=== PATIENT | female | born 1960 | race Caucasian/White ===

== ENCOUNTER → 2016-10-04 | Outpatient (CLI) | payer BC ==
[~2016-10-04] MED LIST: ACET1TAB84 PO; DIAZ-165 PO; GFNSR600 PO; HYDR-5688 PO; IVIG INFUSION IV; MULT-506 PO; POLYSOL4 OPB; SALI1SPR3 NAE
--- NOTE | 2016-10-04 12:26 | MAMMOGRAPHY REPORT ---
UNILATERAL LEFT DIGITAL DIAGNOSTIC MAMMOGRAM TOMOSYNTHESIS WITH CAD: 10/04/2016 CLINICAL HISTORY: History of left breast cancer status post lumpectomy and radiation therapy, here f or short interval follow-up. The patient reports pain at her surgical bed since her surgery. 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 TECHNIQUE: Breast tomosynthesis in addition to standard 2D mammography was performed. Current study was also evaluated with a Computer Aided Detection (CAD) system. Left CC and MLO 2-D and tomosynth esis images and spot magnification left CC and ML views were obtained. COMPARISON: Comparison is made to exams dated: 03/21/2016 stereotactic biopsy, 03/21/2016 mammogram, ultrasound, 03/14/2016 mammogram, 03/07/2016 mammogram, and 11/20/2014 mammogram - [facility]. BREAST COMPOSITION: The tissue of the left breast is heterogeneously dense, which may obscure small masses. FINDINGS: There are new post surgical changes in the left medial breast from prior lumpectomy, inclu ding architectural distortion and surgical clips at the lumpectomy bed. Spot magnification views of the lumpectomy bed demonstrate punctate calcifications in the region of the lumpectomy bed, which a re best seen on the spot magnification CC view. Review of prior mammograms demonstrates scattered c alcifications within the left breast which have been seen dating back to the 2009 exam. Given that the margins were negative, the calcifications are probably benign, and follow-up is recommended in 6 months to confirm stability. The remainder of the left breast is stable compared to prior exams, without suspicious masses, calci fications, or areas of architectural distortion noted. An asymmetry is seen within the left posteri or breast on the MLO view which has the appearance of normal overlapping fibroglandular tissue on th e tomosynthesis images. Mild diffuse left breast skin thickening is noted, likely a sequela of radi ation therapy. IMPRESSION: ACR-BI-RADS CATEGORY 3: PROBABLY BENIGN Expected post treatment changes in the left breast status post lumpectomy and radiation therapy. Pu nctate calcifications at the lumpectomy bed are probably benign. Recommend bilateral diagnostic tha mograms in 6 months, to reevaluate the left breast postsurgical changes and calcifications and for r outine mammography of the right breast. Also recommend clinical follow-up for left breast pain. The patient has been verbally notified of the results. Approximately 10% of breast cancers are not detected with mammography. A negative mammographic repor t should not delay biopsy if a clinically suggestive mass is present. Megan Johns M.D. ah/:10/04/2016 09:35:30 Card Cutter: Susan TAYLOR(Artur)(Rayna), [facility] letter sent: Personal History 3 BI-RADS Code: ACR-BI-RADS Category 3: Probably Benign
== END | disposition home or self-care (01) ==
LOC: C.MAMM 08:13
PROVIDERS: ATTEND Surgery
DX: Z85.3 Personal history of malignant neoplasm of breast (principal); R92.1 Mammographic calcification found on diagnostic imaging of breast

== ENCOUNTER → 2017-12-11 | Outpatient (CLI) | payer OTHER ==
[~2017-12-11] MED LIST changes: +SALI-3 NAE; -SALI1SPR3 NAE
--- NOTE | 2017-12-11 14:43 | DIAGNOSTIC IMAGING REPORT ---
L HEEL MIN 2 VIEWS CLINICAL HISTORY: PAIN IN L FOOT, LOW BACK PAIN pain COMPARISON: None. DISCUSSION: The bones and joint spaces appear intact. There is no evidence of fracture, dislocation or bony disease. Osteophytic reaction at the Achilles tendon insertion. Subtalar joint is intact. IMPRESSION: No acute process. Moderate ossification Achilles tendon insertion. The above report was generated using voice recognition software. It may contain grammatical, syntax or spelling errors. Electronically signed by: Yahir Woods M.D. 12/11/2017 2:42 PM Dictated Date/Time: 12/11/2017 2:42 PM
--- NOTE | 2017-12-11 14:45 | DIAGNOSTIC IMAGING REPORT ---
L-SPINE MIN 4 VIEWS ROUTINE CLINICAL HISTORY: Low back pain. COMPARISON: Lumbar spine radiographs June 15, 2010 and lumbar spine MRI March 31, 2015. FINDINGS: Alignment of the lumbar spine is anatomic. Vertebral body heights are maintained. There is no fracture or suspicious lesion. Minimal multilevel endplate osteophytosis and mild multilevel facet arthrosis is present. IMPRESSION: 1. No acute lumbar spine fracture or subluxation. 2. Mild multilevel degenerative disc disease and facet arthrosis of the lumbar spine. Electronically signed by: Filiberto Browning M.D. 12/11/2017 2:43 PM Dictated Date/Time: 12/11/2017 2:42 PM
--- NOTE | 2017-12-11 14:46 | DIAGNOSTIC IMAGING REPORT ---
L FOOT MIN 3 VIEWS ROUTINE CLINICAL HISTORY: PAIN IN L FOOT, LOW BACK PAIN pain COMPARISON: None. DISCUSSION: Considerable degenerative change first metatarsophalangeal joint. Mild soft tissue edema at the level of the fifth metatarsophalangeal joint. No evidence for acute bony pathology. Ossification Achilles tendon insertion. IMPRESSION: 1. Significant degenerative change first metatarsophalangeal joint. 2. Soft tissue edema about the fifth toe. 3. Otherwise negative study. The above report was generated using voice recognition software. It may contain grammatical, syntax or spelling errors. Electronically signed by: Yahir Woods M.D. 12/11/2017 2:45 PM Dictated Date/Time: 12/11/2017 2:44 PM
== END | disposition home or self-care (01) ==
LOC: C.RAD 13:54
PROVIDERS: ATTEND Nurse Practitioner
DX: M79.672 Pain in left foot (principal); M54.5 Low back pain

== ENCOUNTER → 2018-04-12 | Outpatient (CLI) | payer OTHER ==
--- NOTE | 2018-04-12 19:37 | DIAGNOSTIC IMAGING REPORT ---
L KNEE 3 VIEWS HISTORY: 58 years-old Female LEFT KNEE PAIN acute left knee pain COMPARISON: None available TECHNIQUE: 3 views of the left knee FINDINGS: Bones appear mildly demineralized. Marginal spurring of the tibial spines. Tricompartmental osteoarthritis, mild within the lateral compartment, mild to moderate within the medial compartment and moderate within the patellofemoral joint. Mild medial soft tissue swelling. No acute fracture, dislocation, opaque foreign body or large joint effusion. IMPRESSION: 1. Tricompartmental osteoarthritis as above without acute fracture or dislocation. 2. Mild medial soft tissue swelling. The above report was generated using voice recognition software. It may contain grammatical, syntax or spelling errors. Electronically signed by: Reji Griffin M.D. 04/12/2018 7:36 PM Dictated Date/Time: 04/12/2018 7:34 PM
--- NOTE | 2018-04-12 19:39 | DIAGNOSTIC IMAGING REPORT ---
PELVIS/BILATERAL HIP 2 VIEWS HISTORY: 58 years-old Female HIP PAIN acute bilateral hip pain COMPARISON: None available TECHNIQUE: AP view the pelvis with 2 views of the bilateral hips for a total of 5 images FINDINGS: Mild degenerative changes of the SI joints and pubic symphysis. Mild osteoarthritis of the bilateral femoral acetabular joints. There is no acute fracture or dislocation identified. Pelvic basin calcifications suggest phleboliths. IMPRESSION: No acute fracture or dislocation. The above report was generated using voice recognition software. It may contain grammatical, syntax or spelling errors. Electronically signed by: Reji Griffin M.D. 04/12/2018 7:38 PM Dictated Date/Time: 04/12/2018 7:36 PM
== END | disposition home or self-care (01) ==
LOC: C.RAD 18:36
PROVIDERS: ATTEND Physician Assistant
DX: M17.12 Unilateral primary osteoarthritis, left knee (principal); M25.561 Pain in right knee; M25.551 Pain in right hip; M25.552 Pain in left hip; Z88.0 Allergy status to penicillin; Z88.1 Allergy status to other antibiotic agents; Z88.5 Allergy status to narcotic agent; Z88.8 Allergy status to other drugs, medicaments and biological substances

== ENCOUNTER → 2018-04-12 | Outpatient (CLI) | payer OTHER ==
--- NOTE | 2018-04-12 19:46 | DIAGNOSTIC IMAGING REPORT ---
R HAND MIN 3 VIEWS ROUTINE HISTORY: 58 years-old Female TRAUMA TO R L FINGER acute post matter greater hand pain, most pronounced within the third digit COMPARISON: None available TECHNIQUE: 3 views of the right hand FINDINGS: Mildly demineralized appearance of the bones. There are at least mild degenerative changes about the interphalangeal and metacarpal phalangeal joints with mild radiocarpal and first carpometacarpal osteoarthritis. There is no definite acute fracture or dislocation identified. No opaque foreign body. Mild soft tissue prominence about the third PIP joint. 2 mm bone fragment is noted along the dorsal surface of the third proximal phalangeal head. IMPRESSION: 1. No acute displaced fracture or dislocation. 2. Mild soft tissue prominence about the third PIP joint with adjacent 2 mm bone fragment suggesting a fragmented osteophyte. Acute fracture fragment is also within the differential. Correlate with point tenderness. The above report was generated using voice recognition software. It may contain grammatical, syntax or spelling errors. Electronically signed by: Rjei Griffin M.D. 04/12/2018 7:44 PM Dictated Date/Time: 04/12/2018 7:41 PM
== END | disposition home or self-care (01) ==
LOC: C.RAD 18:41
PROVIDERS: ATTEND Family Medicine
DX: S56.40 Unspecified injury of extensor muscle, fascia and tendon of other and unspecified finger at forearm level (principal); X58.XXXA Exposure to other specified factors, initial encounter; Z88.0 Allergy status to penicillin; Z88.1 Allergy status to other antibiotic agents; Z88.5 Allergy status to narcotic agent; Z88.8 Allergy status to other drugs, medicaments and biological substances